=== PATIENT | female | born 1985 | race Caucasian/White ===

== ENCOUNTER 2020-11-15 13:21 | Outpatient (CLI) | payer OTHER, SELFPAY ==
--- NOTE | ~2020-11-15 | US_ITS ---
EXAMINATION: US soft tissue head and neck DATE: 11/15/2020 13:56 INDICATION: Neck swelling. Neck pain. TECHNIQUE: Multiple ultrasound images of the thyroid were obtained. COMPARISON: None. FINDINGS: The right thyroid lobe measures 5.6 x 1.8 cm. The left thyroid lobe measures 5.8 x 1.6 cm. In the l eft thyroid lobe, there is a 1.6 cm mixed cystic and solid, vuhlu-qxhe-kdvu nodule with smooth margin without echogenic foci nodule (TI-RADS TR3). In the left thyroid lobe, there is a 13 mm mixed cystic and solid, hypoechoic, lagyu-uaux-ugcu nodule with smooth margin without echogenic foci (TR3). There are mixed solid and cystic nodules in right thyroid lobe measuring up to 7 mm (TR3). There are dimitry l lymph nodes in the neck bilaterally. IMPRESSION: 1. Thyroid nodules. Thyroid ultrasound is recommended in one year. Reviewed, dictated and finalized at [facility]
== END 2020-11-15 13:22 | disposition home or self-care (01) ==
LOC: CHSIMG 13:23
PROVIDERS: PCP Internal Medicine; Visit Provider Internal Medicine
DX: M54.2 Cervicalgia (principal)
CPT/HCPCS: 76536

== ENCOUNTER 2023-08-12 14:49 | Emergency (ER) | payer SELFPAY ==
[2023-08-12 14:52] VITALS: BP 129/85; PULSE 72; TEMP 36.8; O2SAT 99
--- NOTE | 2023-08-12 15:05 | ED.EXTPRO ---
HPI - Extremity Problem General Chief complaint: Extremity Problem,Nontraumatic Stated complaint: shooting pains/numbness Time Seen by Provider: 08/12/23 14:52 Source: patient and family Mode of arrival: ambulatory Limitations: no limitations History of Present Illness HPI Narrative: this is a 37-year-old female that has a history of sciatic back pain but has gotten worse over the past couple of days has tried some grym-lum-cgzuolb medication with minimal relief, she has radiation of her pain into her right lower extremity with some some sharp electrical sensation, with no saddle paresthesias no neurological deficits and she does have point tenderness in her low back and the right paravertebral area with no fever chills. Complaint: extremity pain Onset (ago): day(s) Pain Consistency: constant Location: right Severity scale (1-10): 8 Quality: sharp Exacerbating factors: range of motion, walking and palpation Related Data Home Medications Medication Instructions Recorded Confirmed dextroamphetamine-amphetamine 5 mg 5 mg PO DAILY 08/12/23 08/12/23 tablet Allergies Allergy/AdvReac Type Severity Reaction Status Date / Time Penicillins Allergy Verified 05/04/12 08:10 sulfamethoxazole AdvReac Mild ABD PAIN Verified 05/04/12 08:10 trimethoprim AdvReac Mild ABD PAIN Verified 05/04/12 08:10 CEFADROXIL HYDRATE Allergy Uncoded 05/04/12 08:10 Review of Systems Review of Systems: All systems reviewed & are unremarkable except as noted in HPI and below PMFSH Past Medical History Medical History Sciatica Exam Const: General: healthy appearing Nutritional Appearance: well nourished Orientation/consciousness: patient oriented x3 Limitations: no limitations Neck: Neck: normal visual inspection and no lymphadenopathy Chest: Chest palpation & inspection: normal inspection of the chest Resp: Effort & Inspection: normal respiratory effort Auscultation: clear to auscultation bilaterally Cardio: Rate: regular rate Rhythm: regular rhythm GI: GI Palp: Yes Soft to palpation Auscultation: normal bowel sounds : General: Yes bladder normal to palpation Urinary Catheter: Urinary Catheter: patent and draining Back/Spine/Pelvis: Back: no CVA tenderness Skin: General skin exam: normal color Rashes: no rashes Wounds: no wounds Neuro: General: patient oriented x3, moves all extremities and no meningeal signs Other: low back pain L5 right paravertebral tenderness with positive straight leg raising test on the right with no saddle paresthesias no bowel or bladder dysfunction. Extrem: General: normal to inspection Psych: Mental Status: mental status grossly normal Affect: normal affect Course Course Emergency Course: Patient received injection of 60mg IM Toradol and 60mg IM muscle relaxer, reassessment patient her symptoms have marginally improved and advised patient to follow-up with her primary for further studies to be performed. Vital Signs Vital signs: Vital Signs Temperature 36.8 C 08/12/23 14:52 Pulse Rate 72 08/12/23 14:52 Blood Pressure 129/85 08/12/23 14:52 Pulse Oximetry 99 08/12/23 14:52 Oxygen Delivery Room Air 08/12/23 14:52 Temperature 36.8 C 08/12/23 14:52 Pulse Rate 72 08/12/23 14:52 Blood Pressure 129/85 08/12/23 14:52 Pulse Oximetry 99 08/12/23 14:52 Oxygen Delivery Room Air 08/12/23 14:52 Critical Care Time Critical Care Time Critical Care Time: No Discharge Plan Discharge Clinical Impression: Sciatic leg pain Patient Disposition: Home, Self-Care Condition: Stable Instructions: Antibiotic Form, Sciatica (ED) Additional Instructions: advised to take medicine as prescribed and to follow up with your primary within 1 week if symptoms persist or worsen. Prescriptions: New tramadol 50 mg tablet 50 mg PO Q6H PRN (Reason: pain) Qty: 20 0RF cyclobenzaprin
[2023-08-12] MEDS: ORPHENADRINE CITRATE 30 MG/ML 2 ML VIAL 60 MG IM (15:10)
[2023-08-12] MEDS: KETOROLAC (*BKC) 60 MG/2 ML VIAL IM (15:10)
[2023-08-12 15:40] VITALS: BP 123/74; PULSE 68; RESP 20; O2SAT 98
== END 2023-08-12 15:41 | disposition home or self-care (01) ==
LOC: CHSED 15:14
PROVIDERS: Emergency Provider Emergency Medicine; PCP Internal Medicine
DX: M54.30 Sciatica, unspecified side (principal); Z79.899 Other long term (current) drug therapy
CPT/HCPCS: 96372; 99284; J1885; J2360